=== PATIENT | male | born 2000 | race Caucasian/White ===

== ENCOUNTER 2021-10-09 22:10 | Emergency (ER) | payer SELFPAY ==
[~2021-10-09] VITALS: Ht 170.2 cm; Wt 64.1 kg
[2021-10-09 22:27] LABS: BASO % 0.4 % (0.0-2.0); EOS # 0.1 K/mm3 (0.0-0.7); EOS % 0.6 % (0.0-4.0); GRAN # 6.2 K/mm3 (1.4-6.5); GRAN % 62.5 % (42.2-75.2); HEMATOCRIT 41.2 % (42.0-52.0); HEMOGLOBIN 14.1 g/dl (13.5-18.0); LYMPH # 2.9 K/mm3 (1.2-3.4); LYMPH % 28.8 % (20.0-51.0); MEAN CELL VOLUME 84 fl (80.0-100.0); MEAN CORPUSCULAR HEMOGLOBIN 29 pg (27-31); MEAN CORPUSCULAR HGB CONC 34 g/dl (33.0-37.0); MEAN PLATELET VOLUME 10.2 fl (7.4-10.4); MONO # 0.7 K/mm3 (0.1-0.6); MONO % 7.3 % (1.7-9.3); PLATELET COUNT 296 K/mm3 (130-400); RED BLOOD COUNT 4.92 M/mm3 (4.20-5.60); REDCELL DISTRIBUTION WIDTH-CV 13.1 % (11.5-14.5)
[2021-10-09 22:37] LABS: PROTHROMBIN TIME 11.5 SECONDS (9.7-12.8)
[2021-10-09 22:40] LABS: PARTIAL THROMBOPLASTIN TIME 27.5 SECONDS (26.0-37.0)
[2021-10-09 22:45] LABS: ALANINE AMINOTRANSFERASE 16 U/L (0-55); ALBUMIN 4.7 gm/dL (3.5-5.0); ALKALINE PHOSPHATASE 100 U/L (40-150); ANION GAP 14 mmol/L (7-16); AST,SGOT 19 U/L (5-34); BILIRUBIN,TOTAL 1.6 mg/dL (0.2-1.2); BLOOD UREA NITROGEN 9 mg/dL (9-21); CALCIUM 9.4 mg/dL (8.4-10.2); CARBON DIOXIDE 21 mmol/L (22-29); CHLORIDE 105 mmol/L (98-107); CREATININE, serum 1.02 mg/dL (0.72-1.25); GLUCOSE 122 mg/dL (70-99); POTASSIUM 3.7 mmol/L (3.5-4.5); SODIUM 140 mmol/L (136-145); TOTAL PROTEIN 7.5 gm/dL (6.2-8.1)
[2021-10-09 22:48] LABS: ALCOHOL(ethanol),MEDICAL < 10 mg/dL (0-10)
[2021-10-09 22:52] LABS: TROPONIN-I < 0.010 ng/mL (0.00-0.033)
[2021-10-09] MEDS ORDERED: NORCO 325 MG-51 TAB PO (23:56)
[2021-10-09] MEDS ORDERED: ZOFRAN ODT4 MG PO (23:59)
[2021-10-10 00:09] VITALS: BP 130/64; PULSE 71; TEMP 98.4
== END 2021-10-10 00:18 | disposition home or self-care (01) ==
LOC: COL.ER 22:10
PROVIDERS: Emergency Medicine
DX: R05.9 Cough, unspecified (principal)
CPT/HCPCS: J1170; J2270; J2405; J2765; J7030